=== PATIENT | female | born 1980 | race Two or more races ===

== ENCOUNTER 2017-06-19 14:26 | Outpatient (CLI) | payer OTHER | END 2017-06-19 18:00 | disposition home or self-care (01) | LOC: NST 14:26 | DX: Z34.92 Encounter for supervision of normal pregnancy, unspecified, second trimester (principal) ==

== ENCOUNTER 2017-09-27 14:00 | Inpatient (IN) | payer OTHER ==
[~2017-09-27] VITALS: Ht 162.6 cm; Wt 117.9 kg
[2017-10-17] MEDS ORDERED: PRENATAL TABLE1 EAC1 PO (05:10)
== END 2017-10-19 10:13 | DRG 775 ==
LOC: LDR 10-17 04:07 → OB/GYN 10-17 14:10
PROC: 10E0XZZ Delivery of Products of Conception, External Approach (ICD-10-PCS; principal; 2017-10-17)
PROC: 0W8NXZZ Division of Female Perineum, External Approach (ICD-10-PCS; 2017-10-17)
PROC: 3E033VJ Introduction of Other Hormone into Peripheral Vein, Percutaneous Approach (ICD-10-PCS; 2017-10-17)
PROC: 4A033R1 Measurement of Arterial Saturation, Peripheral, Percutaneous Approach (ICD-10-PCS; 2017-10-17)
PROC: 4A1HXCZ Monitoring of Products of Conception, Cardiac Rate, External Approach (ICD-10-PCS; 2017-10-17)
DX: O80 Encounter for full-term uncomplicated delivery (principal); Z3A.39 39 weeks gestation of pregnancy; Z37.0 Single live birth

== ENCOUNTER 2017-10-04 11:46 | Outpatient (CLI) | payer OTHER | END 2017-10-04 12:43 | disposition home or self-care (01) | LOC: NST 11:46 | DX: Z34.03 Encounter for supervision of normal first pregnancy, third trimester (principal); Z3A.37 37 weeks gestation of pregnancy ==